=== PATIENT | male | born 1990 | race Caucasian/White ===

== ENCOUNTER 2016-06-24 02:13 | Emergency (ER) | payer SELFPAY ==
[~2016-06-24] VITALS: Ht 172.7 cm; Wt 86.3 kg
[~2016-06-24 02:13] MED LIST: BENZ100 PO; ZITH250T PO
[2016-06-24 02:21] VITALS: BP 120/62; PULSE 122; RESP 18; TEMP 100.4; O2SAT 97
[2016-06-24] MEDS ORDERED: CLINDAMYCIN INJ 900 MG in SODIUM CHLORIDE 0.9% INJ 100 ML IV ONE (03:15)
[2016-06-24] MEDS ORDERED: ACETAMINOPHEN 325 MG TAB PO ONE (03:15)
[2016-06-24] MEDS ORDERED: SODIUM CHLORIDE 0.9% FLUSH 5 ML FLUSH IVF PRN (03:15)
[2016-06-24] MEDS ORDERED: SODIUM CHLOR 0.9% 1000 ML INJ 1,000 ML IV ONE ×2 (03:15)
[2016-06-24 03:21] VITALS: BP 131/72; PULSE 119; RESP 18; TEMP 99.8; O2SAT 96
[2016-06-24 03:42] LABS: AUTOMATED NEUTROPHIL # 6.6 TH/MM3 (1.8-7.7); BASOPHIL % 0.2 % (0.0-2.0); EOSINOPHIL # 0.1 TH/MM3 (0-0.4); EOSINOPHIL % 0.6 % (0.0-4.0); HEMATOCRIT 40.6 % (39.0-51.0); LYMPH % 6.9 % (9.0-44.0); LYMPHOCYTE # 0.6 TH/MM3 (1.0-4.8); MEAN CELL VOLUME 87.2 FL (80.0-100.0); MEAN CORPUSCULAR HEMOGLOBIN 30.7 PG (27.0-34.0); MEAN CORPUSCULAR HGB CONC 35.2 % (32.0-36.0); MONO % 12.5 % (0.0-8.0); NEUT % 79.8 % (16.0-70.0); PLATELET COUNT 198 TH/MM3 (150-450); RED BLOOD COUNT 4.66 MIL/MM3 (4.50-5.90); WHITE BLOOD COUNT 8.4 TH/MM3 (4.0-11.0)
[2016-06-24 03:45] LABS: HEMO FLAGS DIFF FINAL
[2016-06-24 03:55] LABS: BICARBONATE 25.9 MEQ/L (21.0-32.0)
--- NOTE | 2016-06-24 04:08 | RADHPO ---
EXAM DATE/TIME: 06/24/2016 03:22 [place] COMPARISON: No previous studies available for comparison. INDICATIONS : Fever. MEDICAL HISTORY : None. SURGICAL HISTORY : None. ENCOUNTER: Initial ACUITY: 3 days PAIN SCORE: 0/10 LOCATION: Bilateral chest FINDINGS: A single view of the chest demonstrates the lungs to be symmetrically aerated without evidence of mas s, infiltrate or effusion. The cardiomediastinal contours are unremarkable. Osseous structures are intact. CONCLUSION: Normal examination. Nicho Driscoll MD on June 24, 2016 at 4:06 Board Certified Radiologist. This report was verified electronically.
[2016-06-24 04:12] LABS: POTASSIUM 3.7 MEQ/L (3.5-5.1)
[2016-06-24 04:25] VITALS: BP 108/54; PULSE 93; RESP 18; TEMP 99.6; O2SAT 98
[2016-06-24] MEDS ORDERED: CLIN1CAP5 PO (04:54)
[2016-06-24] MEDS ORDERED: IBUP800T23 PO (04:54)
--- NOTE | 2016-06-24 05:02 | PD ---
HPI Chief Complaint: Oral / Dental Pain or Problem Time Seen by Provider: 03:01 Travel History International Travel<30 days: No Contact w/Intl Traveler<30days: No Traveled to known affect area: No History of Present Illness HPI 26-year-old male presents to the emergency department for fever myalgias arthralgias and dental pain. Patient has had symptoms for 8 days. Patient was just seen in the hospital emergency department in [place] 3 days ago and given prescription for clindamycin. Patient is visiting the area and because he has ongoing fever mother decided to bring him to the emergency room for evaluation. PFSH Past Medical History Narrative Medical Negative past medical history; right eye surgery; no tobacco use; nursing notes reviewed Medical History: Denies Significant Hx Diminished Hearing: No Immunizations Current: No Tetanus Vaccination: Unknown Past Surgical History Eye Surgery: Yes (RIGHT EYE SX) Social History Alcohol Use: No Tobacco Use: No Substance Use: No Allergies-Medications (Allergen,Severity, Reaction): Coded Allergies: Amoxicillin (Verified Allergy, Severe, RASH HIVES, 06/24/16) Reported Meds & Prescriptions Reported Meds & Active Scripts Active Ibuprofen 800 Mg Tab 800 Mg PO Q8H PRN Clindamycin (Clindamycin HCl) 150 Mg Cap 300 Mg PO Q6H 7 Days Tessalon Perles (Benzonatate) 100 Mg Cap 100 Mg PO TID PRN Zithromax Z-Cipriano (Azithromycin) 250 Mg Tab 250 Mg PO DIRECTED 500 MG (2 TABLETS) PO ON DAY 1, THEN 250 MG (1 TABLET) PO ON DAYS 2 TO 5. Review of Systems Except as stated in HPI: all other systems reviewed are Neg General / Constitutional: Positive: Fever, No: Chills HENT: Positive: Congestion, Dental Difficulties Cardiovascular: No: Chest Pain or Discomfort Respiratory: No: Cough Gastrointestinal: No: Nausea, Vomiting, Abdominal Pain Genitourinary: No: Decreased Urinary Output, Flank Pain Musculoskeletal: Positive: Myalgias, Arthralgias Skin: No Rash Neurologic: No: Weakness Psychiatric: Positive: Anxiety Hematologic/Lymphatic: No: Lymph Node Enlargement Physical Exam Narrative GENERAL: Well-developed well-nourished male in no acute distress no respiratory distress SKIN: Warm and dry. HEAD: Normocephalic. EYES: No scleral icterus. No injection or drainage. ENT: Mucous membranes moist airway is patent maxillary and mandibular dentition with multiple caries and erosion of dentition to the gum level with gingival edema but no fluctuance and no purulent drainage. No trismus. Tympanic membranes no redness no dullness to loss of landmarks. NECK: Supple, trachea midline. No JVD or lymphadenopathy. No meningismus no nuchal rigidity. CARDIOVASCULAR: Regular rate and rhythm without murmurs, gallops, or rubs. RESPIRATORY: Breath sounds equal bilaterally. No accessory muscle use. GASTROINTESTINAL: Abdomen soft, non-tender, nondistended. MUSCULOSKELETAL: No cyanosis, or edema. BACK: Nontender without obvious deformity. No CVA tenderness. Data Data Last Documented VS Vital Signs Date Time Temp Pulse Resp B/P Pulse Ox O2 Delivery O2 Flow Rate FiO2 06/24/16 05:24 99.2 97 18 111/64 97 06/24/16 04:25 Room Air Orders Basic Metabolic Panel (Bmp) (06/24/16 03:01) Complete Blood Count With Diff (06/24/16 03:01) Blood Culture (06/24/16 03:01) Group A Rapid Strep Screen (06/24/16 03:01) Iv Access Insert/Monitor (06/24/16 03:01) Acetaminophen (Tylenol) (06/24/16 03:15) Clindamycin Inj (Cleocin Inj) (06/24/16 03:15) Sodium Chloride 0.9% Flush (Ns Flush) (06/24/16 03:15) Sodium Chlor 0.9% 1000 Ml Inj (Ns 1000 M (06/24/16 03:15) Chest, Single Ap (06/24/16 ) Influenzae A/B Antigen (06/24/16 03:01) Sodium Chlor 0.9% 1000 Ml Inj (Ns 1000 M (06/24/16 03:15) Strep Culture (Group A) (06/24/16 02:30) Labs Laboratory Tests Test 06/24/16 02:30 White Blood Count 8.4 TH/MM3 Red Blood Count 4.66 MIL/MM3 Hemoglobin 14.3 GM/DL Hematocrit 40.6 % Mean Corpuscular Volume 87.2 FL Mean Corpuscular Hemoglobin 30.7 PG Mean Corpuscular Hemoglobin 35.2 % Concent Red Cell Distribution Width 12.0 % Platelet Count 198 TH/MM3 Mean Platelet Volume 9.4 FL Neutrophils (%) (Auto) 79.8 % Lymphocytes (%) (Auto) 6.9 % Monocytes (%) (Auto) 12.5 % Eosinophils (%) (Auto) 0.6 % Basophils (%) (Auto) 0.2 % Neutrophils # (Auto) 6.6 TH/MM3 Lymphocytes # (Auto) 0.6 TH/MM3 Monocytes # (Auto) 1.1 TH/MM3 Eosinophils # (Auto) 0.1 TH/MM3 Basophils # (Auto) 0.0 TH/MM3 CBC Comment DIFF FINAL Differential Comment Sodium Level 140 MEQ/L Potassium Level 3.7 MEQ/L Chloride Level 105 MEQ/L Carbon Dioxide Level 25.9 MEQ/L Anion Gap 9 MEQ/L Blood Urea Nitrogen 15 MG/DL Creatinine 1.00 MG/DL Estimat Glomerular Filtration 92 ML/MIN Rate Random Glucose 107 MG/DL Calcium Level 8.5 MG/DL MDM Medical Decision Making Medical Screen Exam Complete: Yes Emergency Medical Condition: Yes Medical Record Reviewed: Yes Interpretation(s) cxr: Per reading radiologist Dr. Driscoll no acute disease Strep test: Negative Influenza A/B antigen negative CBC is automated differential values in normal range except for 79.8% neutrophils by automated differential Basic metabolic panel: Values grossly normal range Differential Diagnosis Febrile illness, viral syndrome, pharyngitis, sinusitis, influenza, dentalgia, dental abscess, apical abscess, pneumonia, dehydration Narrative Course 26-year-old male presents with 8 days of facial pain and dental pain now 3 days after being seen and an emergency department in [place] where he was prescribed Cleocin could not of the prescription therefore did not take any medication and has not improved. Patient is been expanding myalgias arthralgias and migratory facial/dental pain without any evidence of swelling and no fluctuance abscesses noted for I&D in the emergency department. Patient is noted to have fever. Patient here will be administered IV fluids, specimens are collected and sent for resulting, patient administered weight-based acetaminophen. Patient also given one-time dose of clindamycin IV 900 mg due to his penicillin allergy and multiple dental caries with audible dental pain. Patient is clinically improved lab values have been resulted and are grossly within normal range Patient given prescription for clindamycin 150 mg tablets to take 2 every 6 hours for 7 days he is encouraged to follow-up with a dentist as well as continue to monitor temperature and take ibuprofen and/or acetaminophen as needed for fever 100.4F or greater and to increase fluid hydration patient is aware of discharge diagnosis discharge recommendations and ongoing outpatient management needs. Diagnosis Primary Impression: Febrile illness Additional Impressions: Dentalgia Dental abscess Referrals: Dentist call for appointment Primary Care Physician call for appointment Patient Instructions: General Instructions Additional Instructions: Monitor temperature every 4 hours with thermometer Take acetaminophen/Tylenol every 4 hours as needed for fever 100.4F or greater Take ibuprofen/Motrin/Advil every 6-8 hours as needed for fever 100.4F or greater or may use prescription high dose ibuprofen 800 mg as often as every 8 hours for fever 100.4F or greater or for pain associated with inflammation Complete course of antibiotic as prescribed Follow-up with your primary care physician Follow-up with dentist call office on Saturday to schedule follow-up appointment Return to the emergency department for any concerns Increase fluid hydration Med/Other Pt SpecificInfo: Prescription(s) given Scripts Ibuprofen 800 Mg [id number] Mg PO Q8H PRN (PAIN GREATER THAN 5) #12 TAB Ref 0 Prov:Deirdre Guillory MD 06/24/16 Clindamycin 150 Mg Hta750 Mg PO Q6H 7 Days Ref 0 Prov:Deirdre Guillory MD 06/24/16 Disposition: 01 DISCHARGE HOME Condition: Stable Deirdre Guillory MD Jun 24, 2016 05:02
[2016-06-24 05:24] VITALS: BP 111/64; TEMP 99.2
== END 2016-06-24 05:27 | disposition home or self-care (01) ==
LOC: PHEFT 02:13
DX: R50.9 Fever, unspecified (principal); K04.7 Periapical abscess without sinus
CPT/HCPCS: 71010; 80048; 85025; 87040; 87081; 87804; 87880; 96361; 96365; 99283; J7030